=== PATIENT | female | born 1935 | race Caucasian/White ===

== ENCOUNTER 2016-10-26 16:33 | Emergency (ER) | payer OTHER ==
[~2016-10-26] VITALS: Ht 165.1 cm; Wt 76.0 kg
[~2016-10-26 16:33] MED LIST: ADULT LOW DOSE81 M1 PO; AMLODIPINE BESYL5 MG PO; ASCORBIC ACID500 M1 PO; ASPIR-LOW81 MG PO; ASPIRIN EC325 MG PO; AVAPRO150 MG PO; Anusol HC,Proctozone PR; CENTRUM SILVER1 EAC3 PO; CLOPIDOGREL75 MG PO; CO Q-10100 MG PO; Centrum Silver,Certa PO; DIOVAN80 MG PO; DOCUSATE SODIU100 MG PO; DUREZOL 0.100 DROP/5 LEFT EYE; HYDROCHLOROTHIA50 MG PO; IMDUR30 MG PO; LOPRESSOR25 MG PO; LOW DOSE ASPIRI81 M1 PO; LUMIGAN 0.50 DROP/22 LEFT EYE; NITROPASTE 2%1 GM TD; NORVASC10 MG PO; NORVASC5 MG PO; PANTOPRAZOLE SO40 MG PO; PLAVIX75 MG PO; POLYETHYLENE GL17 GM PO; PRAVACHOL40 MG PO; PREDNISONE10 MG PO; PREVACID30 MG PO; PRILOSEC20 MG PO; PROCTOZONE-HC30 GM RC; SENNA PLUS TAB1 EACH PO; TOPROL XL25 MG PO; VITAMIN C PO; VITAMIN D PO; VITAMIN D22000 UNIT PO; VITAMIN D400 UNI1 PO; VYTORIN 10/21 TABLET PO; predniSONE PO
[2016-10-26] MEDS ORDERED: PERCOCET 5/31 TABLET PO (22:08)
[2016-10-26 23:13] VITALS: BP 122/97
== END 2016-10-26 23:20 | disposition home or self-care (01) ==
LOC: EME 16:33
DX: S22.089A Unspecified fracture of T11-T12 vertebra, initial encounter for closed fracture (principal); S09.90XA Unspecified injury of head, initial encounter; W01.198A Fall on same level from slipping, tripping and stumbling with subsequent striking against other object, initial encounter; E78.5 Hyperlipidemia, unspecified; I10 Essential (primary) hypertension; I25.2 Old myocardial infarction; Z87.442 Personal history of urinary calculi; Z86.73 Personal history of transient ischemic attack (TIA), and cerebral infarction without residual deficits; Z85.820 Personal history of malignant melanoma of skin; Z95.5 Presence of coronary angioplasty implant and graft
CPT/HCPCS: 70450; 71020; 72170; 99281; 99285

== ENCOUNTER 2016-10-29 14:08 | Observation (INO) | payer OTHER ==
[~2016-10-29] VITALS: Ht 162.6 cm; Wt 75.7 kg
[~2016-10-29 14:08] MED LIST changes: +PERCOCET 5/31 TABLET PO
[2016-10-29 15:08] LABS: EOSINOPHIL (%) 0.8 % (0-5); EOSINOPHIL COUNT 0.1 K/uL (0-0.3); HEMATOCRIT 36.9 % (36.0-46.0); IMMATURE GRANULOCYTE (%) 0.3 % (0.0-0.7); INSTRUMENT ABS NEUTROPHIL CT 4.2 K/uL; LYMPHOCYTE COUNT 2.5 K/uL (1.0-2.8); MCH 31.2 PG (29.0-34.0); MCHC 34.7 G/DL (30.0-36.0); MEAN PLAT.VOLUME 8.5 uM^3 (9.5-12.4); MONOCYTE COUNT 0.7 K/uL (0-0.8); NEUTROPHIL (%) 56.1 % (45-76); NEUTROPHIL COUNT 4.2 K/uL (1.8-6.4); PLATELET COUNT 168 K/uL (156-360); RBC DIS.WIDTH-CV 13.7 % (11.8-14.6); RBC DIS.WIDTH-SD 45.1 % (39-53); WHITE BLOOD COUNT 7.4 K/uL (4.1-10.2)
[2016-10-29 15:16] LABS: CHLORIDE 93 mEq/L (99-109); SODIUM 126 mEq/L (136-147)
[2016-10-29 15:18] LABS: GLUCOSE 123 mg/dL (70-99)
[2016-10-29 15:19] LABS: ANION GAP 11 MEQ/L (2-14)
[2016-10-29 15:22] LABS: GFR ESTIMATE (CALCULATED) > 59 mL/min/
[2016-10-29 15:23] LABS: UREA NITROGEN (BUN) 18 mg/dL (9-23)
[2016-10-29 16:43] LABS: ADD MIUA? YES; BILIRUBIN NEGATIVE; BLOOD SMALL; COLOR YELLOW ((YELLOW)); GLUCOSE (STRIP) NEGATIVE; KETONES NEGATIVE; LEUKOCYTES LARGE; NITRITE NEGATIVE; PROTEIN (STRIP) NEGATIVE; SPECIFIC GRAVITY 1.011 (1.000-1.030); UROBILINOGEN 0.2 MG/DL (0.2-1.0)
[2016-10-29 17:20] LABS: BACTERIA 2+ /HPF; EPITHELIAL CELLS RARE /HPF; HYALINE CASTS 0-5 /LPF; MUCUS TRACE /LPF; RED BLOOD CELLS NONE SEEN /HPF (0-5); WHITE BLOOD CELLS TNTC /HPF (0-5); WHITE BLOOD CELLS CLUMP MANY /HPF (0-5)
[2016-10-29] MEDS ORDERED: LANSOPRAZOLE30 MG PO (20:32)
[2016-10-29] MEDS ORDERED: ONE-A-DAY ESSE1 EAC1 PO (20:32)
[2016-10-29] MEDS ORDERED: ASCORBIC ACID250 MG PO (20:33)
[2016-10-29] MEDS ORDERED: AVAPRO150 MG PO (20:33)
[2016-10-29] MEDS ORDERED: VITAMIN D31000 UNIT PO (20:33)
[2016-10-29] MEDS ORDERED: MOTRIN400 MG PO (20:34)
[2016-10-29] MEDS ORDERED: CITRATE OF MAG296 ML PO (20:34)
[2016-10-29] MEDS ORDERED: FLEET ENEMA-AD118 ML PR (20:35)
[2016-10-29 22:28] VITALS: BP 139/58
[2016-10-30 00:24] VITALS: BP 151/67
[2016-10-30 04:00] VITALS: BP 113/60
[2016-10-30 05:34] LABS: HEMATOCRIT 33.9 % (36.0-46.0); MCH 31.9 PG (29.0-34.0); MCHC 34.8 G/DL (30.0-36.0); MCV 91.6 FL (83-99); MEAN PLAT.VOLUME 9.2 uM^3 (9.5-12.4); PLATELET COUNT 159 K/uL (156-360); RBC DIS.WIDTH-CV 14.3 % (11.8-14.6); RBC DIS.WIDTH-SD 48.6 % (39-53); WHITE BLOOD COUNT 7.9 K/uL (4.1-10.2)
[2016-10-30 06:03] LABS: ANION GAP 7 MEQ/L (2-14); CHLORIDE 105 MEQ/L (99-109); GFR ESTIMATE (CALCULATED) > 59 mL/min/; SAMPLE HEMOLYSIS CHECK 0; SAMPLE ICTERIC CHECK 0; SAMPLE LIPEMIA CHECK 0; UREA NITROGEN (BUN) 15 mg/dL (9-23)
[2016-10-30 06:05] LABS: GLUCOSE 81 mg/dL (70-99); POTASSIUM 4.1 MEQ/L (3.7-5.4); SODIUM 135 MEQ/L (136-147)
[2016-10-30 07:40] VITALS: BP 121/86
[2016-10-30 11:57] VITALS: BP 109/55
[2016-10-30] MEDS ORDERED: CEFTIN250 MG PO (13:48)
== END 2016-10-30 14:03 | disposition home or self-care (01) ==
LOC: EME 14:08 → EDOF 19:34 → ENRESERV 19:38 → 5WEST 20:39 → EDOF 20:42 → ENRESERV 20:42 → 5WEST 21:54
PROVIDERS: Emergency Medicine; Hospitalist
DX: N39.0 Urinary tract infection, site not specified (principal); M48.54XA Collapsed vertebra, not elsewhere classified, thoracic region, initial encounter for fracture; I10 Essential (primary) hypertension; R11.2 Nausea with vomiting, unspecified; E87.6 Hypokalemia; E87.1 Hypo-osmolality and hyponatremia; Z79.891 Long term (current) use of opiate analgesic; I95.9 Hypotension, unspecified; J45.909 Unspecified asthma, uncomplicated; Z86.73 Personal history of transient ischemic attack (TIA), and cerebral infarction without residual deficits; Z87.442 Personal history of urinary calculi; I25.2 Old myocardial infarction; I25.10 Atherosclerotic heart disease of native coronary artery without angina pectoris; Z95.1 Presence of aortocoronary bypass graft; Z95.5 Presence of coronary angioplasty implant and graft; Z85.820 Personal history of malignant melanoma of skin; R09.02 Hypoxemia; K59.00 Constipation, unspecified; E78.5 Hyperlipidemia, unspecified; Z79.82 Long term (current) use of aspirin; Z90.49 Acquired absence of other specified parts of digestive tract; Z88.8 Allergy status to other drugs, medicaments and biological substances
CPT/HCPCS: 74176; 80048; 81003; 83605; 85025; 85027; 87040; G0378; J0696; J7030; J7040; J7050

== ENCOUNTER 2016-11-07 08:21 | Inpatient (IN) | payer OTHER ==
[~2016-11-07] VITALS: Ht 165.1 cm; Wt 80.5 kg
[~2016-11-07 08:21] MED LIST changes: +ASCORBIC ACID250 MG PO; +CEFTIN250 MG PO; +CITRATE OF MAG296 ML PO; +FLEET ENEMA-AD118 ML PR; +LANSOPRAZOLE30 MG PO; +MOTRIN400 MG PO; +ONE-A-DAY ESSE1 EAC1 PO; +VITAMIN D31000 UNIT PO
[2016-11-07 09:05] LABS: MCH 31.6 PG (29.0-34.0); MCHC 34.4 G/DL (30.0-36.0); MCV 91.8 FL (83-99); RBC DIS.WIDTH-CV 14.6 % (11.8-14.6); RBC DIS.WIDTH-SD 49.1 % (39-53); RED BLOOD COUNT 3.92 M/uL (3.80-5.20); WHITE BLOOD COUNT 8.2 K/uL (4.1-10.2)
[2016-11-07 09:20] LABS: ANION GAP 7 MEQ/L (2-14); CHLORIDE 101 MEQ/L (99-109); GFR ESTIMATE (CALCULATED) > 59 mL/min/; GLUCOSE 93 mg/dL (70-99); POTASSIUM 4.7 MEQ/L (3.7-5.4); SAMPLE HEMOLYSIS CHECK 2; SAMPLE ICTERIC CHECK 0; SAMPLE LIPEMIA CHECK 0; SODIUM 134 MEQ/L (136-147); UREA NITROGEN (BUN) 14 mg/dL (9-23)
[2016-11-07 09:24] LABS: TROP-I INTERPRETATION NEGATIVE; TROPONIN-I 0.02 ng/mL (0.0-0.30)
[2016-11-07 09:43] LABS: BASOPHIL COUNT 0.1 K/uL (0-0.1); EOSINOPHIL COUNT 0.3 K/uL (0-0.3); IMMATURE GRANULOCYTE (%) 0.4 % (0.0-0.7); INSTRUMENT ABS NEUTROPHIL CT 4.5 K/uL; LYMPHOCYTE COUNT 2.7 K/uL (1.0-2.8); MEAN PLAT.VOLUME 8.8 uM^3 (9.5-12.4); MONOCYTE (%) 7.7 % (3-12); MONOCYTE COUNT 0.6 K/uL (0-0.8); NEUTROPHIL (%) 54.2 % (45-76); NEUTROPHIL COUNT 4.5 K/uL (1.8-6.4)
[2016-11-07 09:44] LABS: PLATELET COUNT 221 K/uL (156-360)
[2016-11-07 09:56] LABS: INTER. NORMALIZED RATIO 1.1
[2016-11-07 10:04] LABS: PTT 29.9 SEC (25-37)
[2016-11-07] MEDS ORDERED: NITROSTAT0.3 MG SL (11:16)
[2016-11-07] MEDS ORDERED: LORTAB 5-325 M1 EACH PO (11:18)
[2016-11-07] MEDS ORDERED: PRAVACHOL40 MG PO (11:19)
[2016-11-07] MEDS ORDERED: MOVANTIK25 MG PO (11:20)
[2016-11-07] MEDS ORDERED: DULCOLAX10 MG PR (11:23)
[2016-11-07] MEDS ORDERED: LUMIGAN 0.50 DROP/22 RIGHT EYE (11:23)
[2016-11-07] MEDS ORDERED: DULCOLAX5 MG PO (11:24)
[2016-11-07] MEDS ORDERED: OMEGA-31000 M1 PO (11:26)
[2016-11-07] MEDS ORDERED: TURMERIC500 M2 PO (11:28)
[2016-11-07] MEDS ORDERED: [UNRECOGNIZED DRUG - OTHER] PO (11:28)
[2016-11-07] MEDS ORDERED: HAIR SKIN NAIL1 EACH PO (11:29)
[2016-11-07 14:30] VITALS: BP 136/70
[2016-11-07 15:25] LABS: HDL CHOLESTEROL 39 MG/DL (Desirable>=50); LDL CHOLESTEROL 67 mg/dL (Desirable<100); NON-HDL CHOLESTEROL 82 mg/dL (Desirable<160); TOTAL CHOLESTEROL 121 mg/dL (Desirable<200); TRIGLYCERIDES 77 MG/DL (Normal: <150)
[2016-11-07 19:20] VITALS: BP 150/67
[2016-11-07 23:47] VITALS: BP 161/70
[2016-11-08 07:14] LABS: Estimated Average Glucose 146 mg/dL (70-123); HEMOGLOBIN A1c (GLYCOHEMOGLOB) 6.7 % HGB (Below 5.7)
[2016-11-08 08:54] VITALS: BP 142/75
[2016-11-08 11:41] VITALS: BP 124/66
[2016-11-08 13:13] LABS: POINT-OF-CARE METER ID UU14162513
[2016-11-08 15:59] VITALS: BP 142/65
[2016-11-08 16:56] LABS: POINT-OF-CARE METER ID UU13113831
[2016-11-08 20:43] VITALS: BP 159/70
[2016-11-08 20:59] LABS: POINT-OF-CARE METER ID UU14162513
[2016-11-09 01:16] VITALS: BP 129/66
[2016-11-09 04:46] VITALS: BP 146/72
[2016-11-09 07:49] VITALS: BP 172/82
[2016-11-09 08:14] LABS: POINT-OF-CARE METER ID UU14162513
[2016-11-09] MEDS ORDERED: DOCUSATE SODIU100 MG PO (09:55)
[2016-11-09 11:24] VITALS: BP 115/64
[2016-11-09 12:33] LABS: POINT-OF-CARE METER ID UU14162513
== END 2016-11-09 14:30 | disposition home health service (06) | DRG 65 ==
LOC: EME 08:21 → EDOF 11:14 → ENRESERV 11:17 → 5WEST 14:09
PROVIDERS: Emergency Medicine; Hospitalist
DX: I63.511 Cerebral infarction due to unspecified occlusion or stenosis of right middle cerebral artery (principal); I69.354 Hemiplegia and hemiparesis following cerebral infarction affecting left non-dominant side; M80.88XA Other osteoporosis with current pathological fracture, vertebra(e), initial encounter for fracture; E11.65 Type 2 diabetes mellitus with hyperglycemia; I10 Essential (primary) hypertension; E78.5 Hyperlipidemia, unspecified; I73.9 Peripheral vascular disease, unspecified; K59.03 Drug induced constipation; I25.10 Atherosclerotic heart disease of native coronary artery without angina pectoris; K21.9 Gastro-esophageal reflux disease without esophagitis; Z79.84 Long term (current) use of oral hypoglycemic drugs; I25.2 Old myocardial infarction; Z79.82 Long term (current) use of aspirin; Z79.02 Long term (current) use of antithrombotics/antiplatelets; Z85.820 Personal history of malignant melanoma of skin; Z95.5 Presence of coronary angioplasty implant and graft; Z90.49 Acquired absence of other specified parts of digestive tract; Z87.442 Personal history of urinary calculi; Z87.440 Personal history of urinary (tract) infections; Z82.49 Family history of ischemic heart disease and other diseases of the circulatory system
CPT/HCPCS: 70450; 70551; 71010; 80048; 80061; 82948; 83036; 84484; 85025; 85610; 85730; 93005; 93306; 93880; 99281; 99285; G0378; G8978 GP CI; G8979 GP CH; G8980 GP CI; G8987 GO CJ; G8988 CI; G8989 CJ; J1650

== ENCOUNTER 2017-02-20 20:45 | Inpatient (IN) | payer OTHER ==
[~2017-02-20] VITALS: Ht 175.3 cm; Wt 73.3 kg
[~2017-02-20 20:45] MED LIST changes: +DULCOLAX10 MG PR; +DULCOLAX5 MG PO; +HAIR SKIN NAIL1 EACH PO; +LORTAB 5-325 M1 EACH PO; +LUMIGAN 0.50 DROP/22 RIGHT EYE; +MOVANTIK25 MG PO; +NITROSTAT0.3 MG SL; +OMEGA-31000 M1 PO; +TURMERIC500 M2 PO; +[UNRECOGNIZED DRUG - OTHER] PO
[2017-02-20 21:53] LABS: HEMATOCRIT 39.2 % (36.0-46.0); HEMOGLOBIN 14.1 G/DL (11.9-15.5); MCH 32.3 PG (29.0-34.0); MCV 89.9 FL (83-99); PLATELET COUNT 188 K/uL (156-360); RBC DIS.WIDTH-CV 13.3 % (11.8-14.6); RBC DIS.WIDTH-SD 43.8 % (39-53); RED BLOOD COUNT 4.36 M/uL (3.80-5.20)
[2017-02-20 22:05] LABS: CHLORIDE 97 mEq/L (99-109); POTASSIUM 4.5 mEq/L (3.7-5.4); SODIUM 128 mEq/L (136-147)
[2017-02-20 22:07] LABS: GLUCOSE 101 mg/dL (70-99)
[2017-02-20 22:11] LABS: GFR ESTIMATE (CALCULATED) 56 mL/min/
[2017-02-20 22:12] LABS: UREA NITROGEN (BUN) 15 mg/dL (9-23)
[2017-02-20 22:50] LABS: ALBUMIN 3.4 g/dL (3.2-4.8)
[2017-02-20 22:55] LABS: TOTAL BILIRUBIN 0.7 mg/dL (0.0-1.0)
[2017-02-20 22:56] LABS: ALKALINE PHOSPHATASE 83 IU/L (3-129)
[2017-02-20 22:59] LABS: ALT (GPT) 21 IU/L (3-49); AST (GOT) 33 IU/L (2-34); DIRECT BILIRUBIN 0.4 mg/dL (0.0-0.3)
[2017-02-20 23:00] LABS: LIPASE 8 U/L (1.0-51.0)
[2017-02-20 23:38] LABS: APPEARANCE CLOUDY ((CLEAR)); BILIRUBIN NEGATIVE; BLOOD NEGATIVE; COLOR AMBER ((YELLOW)); GLUCOSE (STRIP) NEGATIVE; KETONES NEGATIVE; LEUKOCYTES NEGATIVE; NITRITE NEGATIVE; PROTEIN (STRIP) NEGATIVE; SPECIFIC GRAVITY 1.026 (1.000-1.030)
[2017-02-20 23:42] LABS: BACTERIA NONE SEEN /HPF; EPITHELIAL CELLS RARE /HPF; HYALINE CASTS 40-50 /LPF; MUCUS TRACE /LPF; RED BLOOD CELLS 0-5 /HPF (0-5); UCUL ADDED? NO; WHITE BLOOD CELLS 0-5 /HPF (0-5)
[2017-02-21 00:21] VITALS: BP 147/80
[2017-02-21 03:55] VITALS: BP 120/66
[2017-02-21 05:32] LABS: THEOPHYLLINE < 2.5 MCG/ML (10-20)
[2017-02-21 08:00] VITALS: BP 154/76
[2017-02-21] MEDS ORDERED: COLACE100 MG PO (10:26)
[2017-02-21] MEDS ORDERED: MIRALAX17 GM PO (10:26)
[2017-02-21 12:08] LABS: CHLORIDE 103 MEQ/L (99-109); CREATININE 0.8 MG/DL (0.6-1.3); GFR ESTIMATE (CALCULATED) > 59 mL/min/; POTASSIUM 4.1 MEQ/L (3.7-5.4); SODIUM 133 MEQ/L (136-147); UREA NITROGEN (BUN) 12 mg/dL (9-23)
[2017-02-21 12:14] LABS: GLUCOSE 217 mg/dL (70-99)
[2017-02-21 15:39] VITALS: BP 93/52
[2017-02-21 19:22] VITALS: BP 123/70
[2017-02-22 03:13] VITALS: BP 126/74
[2017-02-22 07:38] VITALS: BP 154/77
[2017-02-22 07:50] LABS: HEMATOCRIT 36.3 % (36.0-46.0); HEMOGLOBIN 12.3 G/DL (11.9-15.5); MCH 30.8 PG (29.0-34.0); MCHC 33.9 G/DL (30.0-36.0); MCV 90.8 FL (83-99); PLATELET COUNT 166 K/uL (156-360); RBC DIS.WIDTH-CV 13.6 % (11.8-14.6); RBC DIS.WIDTH-SD 45.5 % (39-53); WHITE BLOOD COUNT 11.7 K/uL (4.1-10.2)
[2017-02-22 08:10] LABS: CHLORIDE 100 MEQ/L (99-109); CREATININE 0.7 MG/DL (0.6-1.3); GFR ESTIMATE (CALCULATED) > 59 mL/min/; GLUCOSE 121 mg/dL (70-99); POTASSIUM 4.5 MEQ/L (3.7-5.4); SODIUM 130 MEQ/L (136-147); UREA NITROGEN (BUN) 12 mg/dL (9-23)
[2017-02-22 11:26] VITALS: BP 132/78
[2017-02-22 15:42] VITALS: BP 127/69
[2017-02-23 00:38] VITALS: BP 139/82
[2017-02-23 07:05] VITALS: BP 129/94
[2017-02-23 11:07] LABS: CHLORIDE 96 MEQ/L (99-109); CREATININE 0.7 MG/DL (0.6-1.3); GFR ESTIMATE (CALCULATED) > 59 mL/min/; GLUCOSE 103 mg/dL (70-99); SODIUM 131 MEQ/L (136-147); UREA NITROGEN (BUN) 13 mg/dL (9-23)
[2017-02-23 16:39] VITALS: BP 150/76
[2017-02-23 19:13] LABS: HEMATOCRIT 36.3 % (36.0-46.0); HEMOGLOBIN 12.7 G/DL (11.9-15.5); MCH 31.8 PG (29.0-34.0); PLATELET COUNT 184 K/uL (156-360); RBC DIS.WIDTH-SD 46.5 % (39-53); RED BLOOD COUNT 3.99 M/uL (3.80-5.20); WHITE BLOOD COUNT 11.6 K/uL (4.1-10.2)
[2017-02-23 23:50] VITALS: BP 116/62
[2017-02-24 07:15] VITALS: BP 184/96
[2017-02-24 07:20] LABS: HEMATOCRIT 35.3 % (36.0-46.0); HEMOGLOBIN 12.2 G/DL (11.9-15.5); MCHC 34.6 G/DL (30.0-36.0); MCV 89.8 FL (83-99); PLATELET COUNT 184 K/uL (156-360); RBC DIS.WIDTH-CV 13.8 % (11.8-14.6); RBC DIS.WIDTH-SD 45.2 % (39-53); RED BLOOD COUNT 3.93 M/uL (3.80-5.20); WHITE BLOOD COUNT 10.6 K/uL (4.1-10.2)
[2017-02-24 07:28] LABS: ALBUMIN 3.2 G/DL (3.2-4.8); ALKALINE PHOSPHATASE 64 IU/L (3-129); ALT (GPT) 22 IU/L (3-49); AST (GOT) 31 IU/L (2-34); CHLORIDE 97 MEQ/L (99-109); CREATININE 0.7 MG/DL (0.6-1.3); GFR ESTIMATE (CALCULATED) > 59 mL/min/; GLUCOSE 72 mg/dL (70-99); POTASSIUM 4.2 MEQ/L (3.7-5.4); SODIUM 130 MEQ/L (136-147); TOTAL BILIRUBIN 0.5 MG/DL (0.0-1.0); UREA NITROGEN (BUN) 15 mg/dL (9-23)
[2017-02-24 10:00] VITALS: BP 132/70
[2017-02-24 16:09] VITALS: BP 111/55
[2017-02-24 20:00] VITALS: BP 170/88
[2017-02-25 00:33] VITALS: BP 131/72
[2017-02-25 04:49] VITALS: BP 136/81
[2017-02-25 07:20] VITALS: BP 151/86
[2017-02-25 15:10] VITALS: BP 126/78
[2017-02-26 00:16] VITALS: BP 124/68
[2017-02-26 07:14] LABS: CHLORIDE 92 MEQ/L (99-109); CREATININE 0.8 MG/DL (0.6-1.3); GFR ESTIMATE (CALCULATED) > 59 mL/min/; GLUCOSE 82 mg/dL (70-99); POTASSIUM 4.3 MEQ/L (3.7-5.4); SODIUM 132 MEQ/L (136-147); UREA NITROGEN (BUN) 18 mg/dL (9-23)
[2017-02-26 07:56] VITALS: BP 147/82
[2017-02-26] MEDS ORDERED: LEVOFLOXACIN250 MG PO (09:52)
[2017-02-26] MEDS ORDERED: DUONEB 2.5-0.5 M3 ML AEROSOL (09:52)
[2017-02-26] MEDS ORDERED: FUROSEMIDE40 MG PO (09:53)
[2017-02-26] MEDS ORDERED: MONTELUKAST SOD10 MG PO (09:54)
[2017-02-26] MEDS ORDERED: ADVAIR HFA120 INHAL1 IH (09:54)
[2017-02-26] MEDS ORDERED: PREDNISONE20 MG PO (09:55)
== END 2017-02-26 13:50 | DRG 202 ==
LOC: EME 20:45 → 2EASTP 02-21 02:48 → EDOF 02-21 02:48 → ENRESERV 02-21 02:50 → 2EASTP 02-21 03:59
PROVIDERS: Emergency Medicine; Hospitalist; Internal Medicine; Internal Medicine Cardiovascular Disease
DX: J20.9 Acute bronchitis, unspecified (principal); R09.02 Hypoxemia; E87.1 Hypo-osmolality and hyponatremia; S22.080A Wedge compression fracture of T11-T12 vertebra, initial encounter for closed fracture; W19.XXXA Unspecified fall, initial encounter; R73.9 Hyperglycemia, unspecified; T38.0X5A Adverse effect of glucocorticoids and synthetic analogues, initial encounter; I35.0 Nonrheumatic aortic (valve) stenosis; K59.09 Other constipation; N39.0 Urinary tract infection, site not specified; R13.10 Dysphagia, unspecified; R19.00 Intra-abdominal and pelvic swelling, mass and lump, unspecified site; I69.398 Other sequelae of cerebral infarction; R20.0 Anesthesia of skin; K74.60 Unspecified cirrhosis of liver; M81.0 Age-related osteoporosis without current pathological fracture; I10 Essential (primary) hypertension; I25.10 Atherosclerotic heart disease of native coronary artery without angina pectoris; H40.9 Unspecified glaucoma; E78.5 Hyperlipidemia, unspecified; J45.909 Unspecified asthma, uncomplicated; K21.9 Gastro-esophageal reflux disease without esophagitis; F41.9 Anxiety disorder, unspecified; I25.2 Old myocardial infarction; Z79.82 Long term (current) use of aspirin; Z82.49 Family history of ischemic heart disease and other diseases of the circulatory system; Z85.820 Personal history of malignant melanoma of skin; Z86.73 Personal history of transient ischemic attack (TIA), and cerebral infarction without residual deficits; Z87.440 Personal history of urinary (tract) infections; Z87.442 Personal history of urinary calculi; Z95.5 Presence of coronary angioplasty implant and graft
CPT/HCPCS: 71020; 71045; 71250; 74176; 80048; 80053; 80076; 80198; 81003; 82948; 83605; 83690; 83880; 85027; 87040; 87502; 92610 GN; 93005; 93970; 94640; 94640 76; 94667; 94668; 94799; 97530 GP; 99202; 99281; 99285; J1650; J1815; J2930; J7030; J7040; J7512